=== PATIENT | male | born 1990 | race Two or more races ===

== ENCOUNTER → 2020-06-09 | Day surgery (SDC) | payer OTHER ==
[~2020-06-09] VITALS: Ht 180.3 cm; Wt 97.1 kg
[2020-06-09] VITALS (11 sets, daily range): BP systolic 103–139; BP diastolic 53–80
[~2020-06-09] MED LIST: Acetaminophen (Non formulary) 100 ML IV ONE; Atropine Sulfate 0.4mg/ml inj IVP PRN; D5 1/2NS 1,000 ML IV SCH; DiphenhydrAMINE 50mg/ml Inj IVP PRN; Duramorph PF 5mg/10ml amp ONE; HYDROcodone/Acetamin 5/325 tab ORAL PRN; Kenalog-40 1ml Vial ONE; Ketorolac 30mg Inj IV PRN; Ketorolac 30mg Inj ONE; LORazepam Inj 2mg/ml 1ml IV PRN; LR 1000ml 1,000 ML IVLG SCH; LR 1000ml ONE; Labetalol 5mg/ml 20ml vial IV PRN; Lidocaine 1% 10mg/ml/Epi 0.005mg/ml 30ml vial INJ ONE; Lidocaine 1% MPF 10mg/ml 5ml ONE; Meperidine 25mg/1ml Inj (FOR RIGORS ONLY) IV PRN; Metoclopramide 10mg/2ml Inj IVP PRN; Midazolam 2mg/2ml Inj IVP PRN; NS Irrig 4000ml IRRIG ONE; Sterile Water Irrig 1000ml IRRIG ONE; Tylenol #3 tab (300mg/30mg) ORAL PRN; ceFAZolin 1gm IVPB IVPB ONE; celeBREX 200mg Cap **SURGERY PATIENTS ONLY ORAL ONE; fentaNYL 100 mcg/2 mL IV PRN; oxyCONTIN 20mg tab ORAL ONE
--- NOTE | 2020-06-09 07:35 | Pre-Procedure Note/Attestation ---
Pre-Procedure Note/Attestation Complete Prior to Procedure Planned Procedure: left Procedure Narrative: knee diagnosatic arthroscopy, possible menisectomy, synovectomy, chondroplasty Indications for Procedure Pre-Operative Diagnosis: left knee internal derangement Attestation I attest that I discussed the nature of the procedure; its benefits; risks and complications; and alternatives (and the risks and benefits of such alternatives), prior to the procedure, with the patient (or the patient's legal u.s. representative). I attest that, if there was a reasonable possibility of needing a blood transfusion, the patient (or the patient's legal u.s. representative) was given the [facility] standardized written summary, pursuant to the [place] Blood Safety Act ([place] Health and Safety Code # 1645, as amended). I attest that I re-evaluated the patient just prior to the surgery and that there has been no change in the patient's H&P, except as documented below: Mark Sandoval MD Jun 09, 2020 07:35
--- NOTE | 2020-06-09 07:36 | Operative Note - PDOC ---
Operative Note Operative Note Pre-op Diagnosis: left knee internal derangement Procedure: see op report Post-op Diagnosis: same as pre-op plus Operative Findings: consistent w/pre-op dx studies Anesthesia: MAC Specimen: none Complications: none Condition: stable Estimated Blood Loss: none Implant(s) used?: No Mark Sandoval MD Jun 09, 2020 07:36
--- NOTE | 2020-06-09 08:27 | Anethesia Preoperative Eval ---
Anesthesia Pre-op PMH/ROS General Date of Evaluation: Jun 09, 2020 Time of Evaluation: 08:24 Anesthesiologist: Otis ASA Score: ASA 2 Mallampati Score Class I : Soft palate, uvula, fauces, pillars visible Class II: Soft palate, uvula, fauces visible Class III: Soft palate, base of uvula visible Class IV: Only hard plate visible Mallampati Classification: Class II Surgeon: Jaime Diagnosis: L Knee Pain Surgical Procedure: L Knee Arthroscopy Anesthesia History: none Family History: no anesthesia problems Allergies: Coded Allergies: ACETAMINOPHEN (Verified Allergy, Intermediate, rash, 06/08/20) HYDROCODONE (Verified Allergy, Intermediate, rash, 06/08/20) Medications: see eMAR Patient NPO?: Yes Past Medical History Other: obesity - BMI 32 PSxH Narrative: L Knee Sx Anesthesia Pre-op Phys. Exam Physician Exam Last Vital Signs Date Time Temp Pulse Resp B/P (MAP) Pulse Ox O2 Delivery O2 Flow Rate FiO2 06/09/20 06:33 97.4 55 18 131/75 98 Room Air Constitutional: NAD Neurologic: CN 2-12 intact Cardiovascular: RRR Respiratory: CTA Gastrointestinal: S/NT/ND Airway Exam Mallampati Score: Class II MO: full ROM: full Teeth: intact Anesthesia Pre-op A/P Risk Assessment & Plan Assessment: ASA 2 Plan: GA Status Change Before Surgery: No Pre-Antibiotics Dru Grams Ancef IV Given Within 1 Hr of Incision: Yes Time Given: 08:41 Marc Berg MD Jun 09, 2020 08:27
--- NOTE | 2020-06-09 08:28 | Immediate Post-Op Evaluation ---
Immediate Post-Op Evalulation Immediate Post-Op Evalulation Procedure: L Knee Arthroscopy Date of Evaluation: Jun 09, 2020 Time of Evaluation: 09:37 IV Fluids: 1000 LR Blood Products: 0 Estimated Blood Loss: 3 Urinary Output: 0 Blood Pressure Systolic: 109 Blood Pressure Diastolic: 56 Pulse Rate: 59 Respiratory Rate: 16 O2 Sat by Pulse Oximetry: 99 Temperature (Fahrenheit): 98.2 Pain Score (1-10): 2 Nausea: No Vomiting: No Complications 0 Patient Status: awake, reacts, patent, none Hydration Status: adequate Dru Grams Ancef IV Given Within 1 Hr of Incision: Yes Time Given: 08:41 Marc Berg MD Jun 09, 2020 08:28
--- NOTE | 2020-06-09 08:29 | 48 Hour Post Anesthesia Eval ---
Post Anesthesia Evaluation Procedure: L Knee Arthroscopy Date of Evaluation: Jun 09, 2020 Time of Evaluation: 11:43 Blood Pressure Systolic: 122 0: 57 Pulse Rate: 54 Respiratory Rate: 16 Temperature (Fahrenheit): 98.4 O2 Sat by Pulse Oximetry: 99 Airway: patent Nausea: No Vomiting: No Pain Intensity: 2 Hydration Status: adequate Cardiopulmonary Status: Stable Mental Status/LOC: patient returned to baseline Follow-up Care/Observations: 0 Post-Anesthesia Complications: 0 Follow-up care needed: ready to discharge Marc Berg MD Jun 09, 2020 08:29
[2020-06-09] MEDS: Bupivacaine 0.25% Inj 30ml INJ ONE ×2 (08:53→09:08)
--- NOTE | 2020-06-09 16:15 | Operative Note - Dictated ---
DATE OF OPERATION: 06/09/2020 PREOPERATIVE DIAGNOSIS: Left knee internal derangement. POSTOPERATIVE DIAGNOSES: 1. Grade 2 chondral damage, medial patellar facet. 2. Hypertrophic synovial tissue, medial and lateral patellofemoral compartment. 3. Grade 3 chondral damage, anterior and medial femoral condyle. SURGEON: Mark Sandoval MD. ANESTHESIA: General. PROCEDURES: 1. Left knee diagnostic arthroscopy. 2. Synovectomy, medial, lateral, and patellofemoral compartment. 3. Gentle chondroplasty, medial and femoral condyle and medial patellar facet. INDICATION FOR PROCEDURE: The patient is a pleasant gentleman, who sustained a significant injury to left knee. He had positive MRI findings, had continued pain, and elected to undergo left knee diagnostic arthroscopy, possible synovectomy, and chondroplasty. Risks, limitations, expectations, and complications of procedure were discussed in detail. The patient understood. Based on intraoperative findings, we will determine what the clinical outcome is. DESCRIPTION OF PROCEDURE: After informed consent was obtained, the patient was taken to operating room and placed under general anesthesia. Left leg was prepped and draped in a sterile manner. Inferolateral stab incision was then made. Trocar was introduced into the patellofemoral compartment. There were some adhesions of the suprapatellar pouch medially. There was some chondral damage in the patella making visualization somewhat difficult. Medial gutter was free from loose bodies. Medial compartment entered. There was hypertrophic synovial tissue. Medial working portal was established. Synovectomy of the medial compartment, intercondylar notch, and lateral compartment was performed. Medial compartment was entered, meniscus probed and noted to be intact. No chondral damage. ACL was probed and noted to be intact. Lateral compartment was entered, free of any meniscal chondral damage. Camera was then positioned in the medial working portal. Synovectomy, incision of fat pad to the lateral gutter was performed. Camera was then placed in the patellofemoral compartment and synovectomy was completed. Once that was done, a chondroplasty of the anterior medial aspect of the femoral condyle as well as the medial patellar facet was performed. Once that was done, the instruments were removed. Portal sites were closed with 3-0 Monocryl sutures. Steri-Strips and a sterile dressing were applied. ESTIMATED BLOOD LOSS: None. COMPLICATIONS: None. SPECIMENS: None. IMPLANTS: None. Mark Sandoval M.D. DR: CASI JOB#: [id number] CC: JATIN
== END | disposition home or self-care (01) ==
LOC: SUR 05:57
DX: M67.262 Synovial hypertrophy, not elsewhere classified, left lower leg (principal); Z88.6 Allergy status to analgesic agent; E66.9 Obesity, unspecified; Z68.29 Body mass index [BMI] 29.0-29.9, adult
CPT/HCPCS: 29876; 29999; 94003; J0131; J0690; J1100; J1885; J2250; J2405; J2704; J3301; J3490; J7120; U0002; 94150